=== PATIENT | female | born 1980 | race Caucasian/White ===

== ENCOUNTER 2022-08-08 09:45 | Emergency (ER) | payer SELFPAY ==
[2022-08-08] MEDS ORDERED: Acetaminophen 500 MG TAB ONE ×2 (10:46)
== END 2022-08-08 11:45 | disposition home or self-care (01) ==
LOC: ERS 09:45
DX: S93.402A Sprain of unspecified ligament of left ankle, initial encounter (principal); X50.1XXA Overexertion from prolonged static or awkward postures, initial encounter